=== PATIENT | female | born 1965 | race Caucasian/White ===

== ENCOUNTER → 2018-09-27 | Outpatient (CLI) | payer MEDICARE ==
--- NOTE | 2018-09-27 09:32 | Diagnostic Imaging Report ---
INDICATION: Cough and congestion. TIME OF EXAM: 9:23 AM No prior studies are available for comparison. FINDINGS: There are calcified lymph nodes in the mediastinum and [place]. There are calcified granulomas in both lungs consistent with prior granulomatous exposure. No infiltrates are seen. There is no effusion or pneumothorax. IMPRESSION: No acute cardiopulmonary process is detected. Dictated by: Dictated on workstation # [id number]
== END ==
LOC: RAD FS 09:19
PROVIDERS: ATTEND Nurse Practitioner Family
DX: J40 Bronchitis, not specified as acute or chronic (principal)
CPT/HCPCS: 71046